=== PATIENT | female | born 1965 | race Caucasian/White ===

== ENCOUNTER 2018-09-16 23:23 | Inpatient (IN) ==
[2018-09-17 02:55] LABS: Albumin 2.7 G/DL (3.4-5.0); Bilirubin,Total 0.4 MG/DL (0.2-1.0); Calcium 8.5 MG/DL (8.5-10.1); Total Protein 6.8 G/DL (6.4-8.3)
[2018-09-17] MEDS ORDERED: INSULIN REGULAR 100 UNIT/ML IV ONE (03:03)
[2018-09-17] MEDS ORDERED: diphenhydrAMINE CAP 25 MG CAPSULE PO PRN (03:16)
[2018-09-17] MEDS ORDERED: NICOTINE 21 MG/24 HR PATCH TRANSDERM PRN (03:16)
[2018-09-17] MEDS ORDERED: ACETAMINOPHEN 325 MG TABLET PO PRN (03:16)
[2018-09-17] MEDS ORDERED: DEXTROSE 50% 25 GM/50 ML VIAL IV PRN (03:16)
[2018-09-17] MEDS ORDERED: GLUCAGON 1 MG VIAL IM PRN (03:16)
[2018-09-17] MEDS ORDERED: SODIUM POLYSTYRENE SULFATE 15 GM/60 ML BOTTLE PO PRN (03:16)
[2018-09-17] MEDS ORDERED: BISACODYL 5 MG TABLET PO PRN (03:16)
[2018-09-17] MEDS ORDERED: NITROGLYCERIN SL 0.4 MG TABLET SL PRN (03:19)
[2018-09-17] MEDS: cefTRIAXone 1,000 MG in SYRINGE 1 EACH IV SCH ×2 (04:26→17:15)
[2018-09-17] MEDS: ENOXAPARIN 100 MG/ML SYRINGE SUBCUT SCH (04:30)
[2018-09-17] MEDS: ONDANSETRON 4 MG/2 ML VIAL IV PRN ×2 (04:35→15:40)
[2018-09-17 05:18] LABS: Allen Test Positive
[2018-09-17 05:19] LABS: ABG Base Excess -6.4 MMOL/L (-2.5-2.5); ABG HCO3 19.1 MMOL/L (20-26); ABG Oxygen Saturation 97.8 % (95-100); ABG PCO2 31.8 MM HG (35-48); ABG PH 7.365 (7.35-7.45); ABG TCO2 16.9 MMOL/L (23-27)
[2018-09-17] MEDS ORDERED: CLOPIDOGREL 300 MG TABLET PO ONE (05:32)
[2018-09-17] MEDS ORDERED: ASPIRIN EC 325 MG TABLET PO ONE (05:34)
[2018-09-17 05:38] LABS: Risk Ratio 4.82; Thyroid Stimulating Hormone 3.75 uIU/ml (0.358-3.74); VLDL CHOLESTEROL 37.6 MG/DL
[2018-09-17] MEDS: SODIUM CHLORIDE 0.9% 1,000 ML IV SCH ×2 (05:49→23:40)
[2018-09-17] MEDS: PANTOPRAZOLE 40 MG TABLET PO SCH (09:30)
[2018-09-17] MEDS: INSULIN REGULAR 100 UNIT/ML SUBCUT SCH ×4 (09:30→23:49)
[2018-09-17 11:19] LABS: Amorphous Crystals,Urine Occasional /HPF (Few); Apearance,Urine Slightly Hazy (Clear); Bacteria,Urine Occasional /HPF (Few); Bilirubin,Urine Negative (Negative); Blood, Urine Negative (Negative); Glucose,Urine (UA) Negative (Negative); Hyaline Casts,Urine 9 /LPF (0-3); Ketones,Urine Negative (Negative); Mucus,Urine Occasional /LPF (Occasional); Nitrite,Urine Positive (Negative); Protein,Urine 100 MG/DL; RBC,Urine 9 /HPF (0-4); Squamous Epithelial Cell,Urine Few /HPF (0-10); Urine Color Amber (Yellow); Urine Specific Gravity 1.017 (1.001-1.035); Urine Urobilinogen < 2.0 EU/DL (0.2-1.0); WBC,Urine 9 /HPF (0-6)
[2018-09-17 11:35] LABS: Barbiturates Screen,Urine Negative (Negative); Benzodiazepines Screen,Urine Negative (Negative); Cannabinoid Screen,Urine Negative (Negative); Opiate Screen,Urine Negative (Negative); Phencyclidine Screen,Urine Negative (Negative)
[2018-09-17 13:22] LABS: Basophils % 0.2 % (0.0-0.8); Eosinophils # 0.1 10*3/uL (0.0-0.87); Eosinophils % 0.3 % (0.00-10.9); Hematocrit 26.9 VOL% (35.7-47.0); Hemoglobin 8.2 GM/DL (12.0-16.0); Immature Granulocytes % 0.8 %; Immature Granulocytes Absolute 0.13 #; Lymphocytes # 1.5 10*3/uL (1.4-4.0); Mean Corpuscular HGB Conc 30.5 GM/DL (32-36); Mean Corpuscular Volume 86.2 FL (87-102); Mean Platelet Volume 10.7 FL (9.6-12.0); Monocytes % 7.9 % (1.7-12.7); Neutrophils % 81.8 % (38.7-73.9); Platelet Count 187 T/CUMM (130-400); Red Blood Count 3.12 MC/CUMM (3.8-5.5); Red Cell Distribution Width 14.2 % (9.3-17.3); White Blood Count 16.3 T/CUMM (4-12)
[2018-09-17 14:33] LABS: % Iron Saturation 17.3 % (18-50)
[2018-09-17] MEDS ORDERED: DOBUTamine 500 MG/250 ML PREMIX IV SCH (16:30)
[2018-09-17] MEDS ORDERED: FUROSEMIDE 100 MG/10 ML VIAL IV ONE (17:00)
[2018-09-17 18:46] LABS: ABG Base Excess -7.3 MMOL/L (-2.5-2.5); ABG HCO3 18.4 MMOL/L (20-26); ABG Oxygen Saturation 90.5 % (95-100); ABG PCO2 30.5 MM HG (35-48); ABG PH 7.362 (7.35-7.45); ABG PO2 62.9 MM HG (80-95); ABG TCO2 16.2 MMOL/L (23-27); Allen Test Positive
[2018-09-17 20:41] LABS: ABG Base Excess -6.9 MMOL/L (-2.5-2.5); ABG HCO3 18.8 MMOL/L (20-26); ABG Oxygen Saturation 98.2 % (95-100); ABG PCO2 29.4 MM HG (35-48); ABG TCO2 16.2 MMOL/L (23-27); Allen Test Positive; Pt O2 Delivery Device BIPAP
[2018-09-17] MEDS: METOPROLOL TARTRATE 25 MG TABLET PO SCH (23:39)
[2018-09-17] MEDS: SODIUM BICARBONATE 650 MG TABLET PO SCH (23:40)
[2018-09-17] MEDS: EZETIMIBE 10 MG TABLET PO SCH (23:40)
[2018-09-18 01:17] LABS: Basophils % 0.3 % (0.0-0.8); Eosinophils % 0.2 % (0.00-10.9); Hematocrit 24.3 VOL% (35.7-47.0); Hemoglobin 7.4 GM/DL (12.0-16.0); Immature Granulocytes % 0.7 %; Lymphocytes # 1.7 10*3/uL (1.4-4.0); Lymphocytes % 12.6 % (21.3-54.2); Mean Corpuscular HGB Conc 30.5 GM/DL (32-36); Mean Corpuscular Volume 88.4 FL (87-102); Mean Platelet Volume 10.8 FL (9.6-12.0); Monocytes % 7.5 % (1.7-12.7); Neutrophils % 78.7 % (38.7-73.9); Platelet Count 164 T/CUMM (130-400); Red Blood Count 2.75 MC/CUMM (3.8-5.5); Red Cell Distribution Width 14.2 % (9.3-17.3); White Blood Count 13.8 T/CUMM (4-12)
[2018-09-18 01:30] LABS: ABG Base Excess -8.4 MMOL/L (-2.5-2.5); ABG HCO3 17.5 MMOL/L (20-26); ABG Oxygen Saturation 90.7 % (95-100); ABG PCO2 28.8 MM HG (35-48); ABG PH 7.358 (7.35-7.45); ABG PO2 63.7 MM HG (80-95); ABG TCO2 15.4 MMOL/L (23-27); Allen Test Positive
[2018-09-18] MEDS ORDERED: DOPamine 800 MG/250 ML PREMIX IV PRN ×2 (01:30→01:31)
[2018-09-18] MEDS ORDERED: CLOPIDOGREL 300 MG TABLET PO ONE (01:30)
[2018-09-18] MEDS ORDERED: DOPamine 800 MG/250 ML PREMIX IV ONE (01:31)
[2018-09-18] MEDS ORDERED: ETOMIDATE 20 MG/10 ML VIAL IV ONE ×2 (01:34→02:01)
[2018-09-18] MEDS ORDERED: VECURONIUM 10 MG VIAL IV ONE ×2 (01:34→02:01)
[2018-09-18 01:41] LABS: Albumin 2.4 G/DL (3.4-5.0); Bilirubin,Total 0.4 MG/DL (0.2-1.0); CKMB % 2.9 %; Calcium 8.4 MG/DL (8.5-10.1); Osmolality,Calculated 307.5 MOS/KG (273-304); Total Protein 6.6 G/DL (6.4-8.3)
[2018-09-18] MEDS ORDERED: VANCOMYCIN INJ 1,500 MG in SODIUM CHLORIDE 0.9% 250 ML IV ONE (01:42)
[2018-09-18 01:43] LABS: Troponin I 12.2 NG/ML (0.00-0.045)
[2018-09-18] MEDS: ENOXAPARIN 100 MG/ML SYRINGE SUBCUT SCH (01:54)
[2018-09-18] MEDS ORDERED: NOREPINEPHRINE 4 MG/4 ML VIAL IV ONE ×2 (01:57→05:15)
[2018-09-18] MEDS ORDERED: VANCOMYCIN INJ 1,500 MG in SODIUM CHLORIDE 0.9% 500 ML IV PRN (02:00)
[2018-09-18] MEDS ORDERED: MIDAZOLAM 2 MG/2 ML VIAL ONE (02:03)
[2018-09-18] MEDS ORDERED: MIDAZOLAM 2 MG/2 ML VIAL IV ONE (02:05)
[2018-09-18] MEDS: PROPOFOL 1,000 MG/100 ML BOTTLE IV SCH ×4 (02:45→21:37)
[2018-09-18 03:48] LABS: ABG Base Excess -7.7 MMOL/L (-2.5-2.5); ABG Oxygen Saturation 93.6 % (95-100); ABG PCO2 42.4 MM HG (35-48); ABG PH 7.258 (7.35-7.45); ABG PO2 82.7 MM HG (80-95); ABG TCO2 17.9 MMOL/L (23-27); Allen Test Positive; Pt O2 Delivery Device Ventilator
[2018-09-18] MEDS: SODIUM CHLORIDE 0.9% 1,000 ML IV SCH ×2 (04:00→17:37)
[2018-09-18] MEDS: cefTRIAXone 1,000 MG in SYRINGE 1 EACH IV SCH ×2 (05:35→17:37)
[2018-09-18 06:57] LABS: Albumin 2.3 G/DL (3.4-5.0); Bilirubin,Total 0.6 MG/DL (0.2-1.0); Calcium 8.1 MG/DL (8.5-10.1); Osmolality,Calculated 312.1 MOS/KG (273-304); Total Protein 6.7 G/DL (6.4-8.3)
[2018-09-18] MEDS: NOREPINEPHRINE 8 MG in SODIUM CHLORIDE 0.9% 242 ML IV PRN ×2 (07:00→13:00)
[2018-09-18 08:39] LABS: ABG HCO3 17.1 MMOL/L (20-26); ABG Oxygen Saturation 98.3 % (95-100); ABG PCO2 31.4 MM HG (35-48); ABG PH 7.321 (7.35-7.45); ABG TCO2 15.3 MMOL/L (23-27)
[2018-09-18] MEDS: METOPROLOL TARTRATE 25 MG TABLET PO SCH ×2 (08:47→21:35)
[2018-09-18] MEDS: PANTOPRAZOLE 40 MG TABLET PO SCH (09:16)
[2018-09-18] MEDS: SODIUM BICARBONATE 650 MG TABLET PO SCH ×2 (09:16→21:35)
[2018-09-18] MEDS: ISOSORBIDE MONONITRATE 30 MG TABLET PO SCH (09:16)
[2018-09-18] MEDS: ASPIRIN EC 325 MG TABLET PO SCH (09:16)
[2018-09-18] MEDS: INSULIN REGULAR 100 UNIT/ML SUBCUT SCH ×4 (09:16→22:35)
[2018-09-18] MEDS ORDERED: GLUCAGON 1 MG VIAL IM PRN (10:39)
[2018-09-18] MEDS ORDERED: DEXTROSE 50% 25 GM/50 ML VIAL IV PRN (10:39)
[2018-09-18] MEDS ORDERED: FUROSEMIDE 100 MG/10 ML VIAL IV ONE (18:33)
[2018-09-18] MEDS: EZETIMIBE 10 MG TABLET PO SCH (21:35)
[2018-09-19] MEDS: ENOXAPARIN 100 MG/ML SYRINGE SUBCUT SCH (02:17)
[2018-09-19] MEDS: cefTRIAXone 1,000 MG in SYRINGE 1 EACH IV SCH ×2 (03:46→18:00)
[2018-09-19] MEDS: PROPOFOL 1,000 MG/100 ML BOTTLE IV SCH ×5 (04:10→23:50)
[2018-09-19] MEDS: ONDANSETRON 4 MG/2 ML VIAL IV PRN (04:15)
[2018-09-19 04:20] LABS: ABG Base Excess -5.2 MMOL/L (-2.5-2.5); ABG HCO3 20.2 MMOL/L (20-26); ABG PCO2 25.6 MM HG (35-48); ABG TCO2 15.1 MMOL/L (23-27)
[2018-09-19 04:31] LABS: Basophils % 0.4 % (0.0-0.8); Eosinophils # 0.2 10*3/uL (0.0-0.87); Eosinophils % 1.6 % (0.00-10.9); Hematocrit 21.4 VOL% (35.7-47.0); Hemoglobin 6.9 GM/DL (12.0-16.0); Immature Granulocytes % 0.6 %; Immature Granulocytes Absolute 0.06 #; Lymphocytes # 1.9 10*3/uL (1.4-4.0); Lymphocytes % 17.9 % (21.3-54.2); Mean Corpuscular HGB Conc 32.2 GM/DL (32-36); Mean Corpuscular Volume 83.3 FL (87-102); Mean Platelet Volume 10.7 FL (9.6-12.0); Monocytes % 7.1 % (1.7-12.7); Neutrophils % 72.4 % (38.7-73.9); Platelet Count 191 T/CUMM (130-400); Red Blood Count 2.57 MC/CUMM (3.8-5.5); White Blood Count 10.7 T/CUMM (4-12)
[2018-09-19] MEDS: NOREPINEPHRINE 8 MG in SODIUM CHLORIDE 0.9% 242 ML IV PRN (04:40)
[2018-09-19 04:41] LABS: Calcium 7.9 MG/DL (8.5-10.1); Osmolality,Calculated 313.3 MOS/KG (273-304)
[2018-09-19] MEDS: METOPROLOL TARTRATE 25 MG TABLET PO SCH ×4 (08:01→21:13)
[2018-09-19] MEDS: INSULIN REGULAR 100 UNIT/ML SUBCUT SCH ×4 (09:16→21:12)
[2018-09-19] MEDS: ASPIRIN EC 325 MG TABLET PO SCH (09:17)
[2018-09-19] MEDS: ISOSORBIDE MONONITRATE 30 MG TABLET PO SCH (09:17)
[2018-09-19] MEDS: FUROSEMIDE 100 MG/10 ML VIAL IV SCH ×2 (09:17→15:48)
[2018-09-19] MEDS: PANTOPRAZOLE 40 MG TABLET PO SCH (09:19)
[2018-09-19] MEDS: SODIUM BICARBONATE 650 MG TABLET PO SCH ×2 (09:19→21:13)
[2018-09-19] MEDS: SODIUM CHLORIDE 0.9% 1,000 ML IV SCH ×2 (09:23→18:19)
[2018-09-19] MEDS ORDERED: SODIUM CHLORIDE 0.9% 1,000 ML IV PRN (09:42)
[2018-09-19] MEDS: ROSUVASTATIN 20 MG TABLET PO SCH (10:28)
[2018-09-19 19:52] LABS: Hematocrit 24.7 VOL% (35.7-47.0)
[2018-09-19] MEDS: EZETIMIBE 10 MG TABLET PO SCH (21:13)
[2018-09-20 04:51] LABS: ABG Base Excess -4.7 MMOL/L (-2.5-2.5); ABG HCO3 20.5 MMOL/L (20-26); ABG Oxygen Saturation 99.2 % (95-100); ABG PCO2 29.4 MM HG (35-48); ABG TCO2 17.7 MMOL/L (23-27)
[2018-09-20] MEDS: PROPOFOL 1,000 MG/100 ML BOTTLE IV SCH ×4 (04:58→20:30)
[2018-09-20] MEDS: cefTRIAXone 1,000 MG in SYRINGE 1 EACH IV SCH ×2 (04:59→17:02)
[2018-09-20 05:01] LABS: Basophils % 0.2 % (0.0-0.8); Eosinophils # 0.4 10*3/uL (0.0-0.87); Eosinophils % 2.9 % (0.00-10.9); Hematocrit 24.2 VOL% (35.7-47.0); Hemoglobin 7.9 GM/DL (12.0-16.0); Immature Granulocytes % 0.6 %; Immature Granulocytes Absolute 0.08 #; Lymphocytes # 1.3 10*3/uL (1.4-4.0); Lymphocytes % 10.3 % (21.3-54.2); Mean Corpuscular HGB Conc 32.6 GM/DL (32-36); Mean Corpuscular Volume 85.2 FL (87-102); Platelet Count 161 T/CUMM (130-400); Red Blood Count 2.84 MC/CUMM (3.8-5.5); Red Cell Distribution Width 14.4 % (9.3-17.3); White Blood Count 12.6 T/CUMM (4-12)
[2018-09-20 05:27] LABS: Calcium 7.7 MG/DL (8.5-10.1); Osmolality,Calculated 319.1 MOS/KG (273-304)
[2018-09-20] MEDS ORDERED: LIDOCAINE 1% 20 ML VIAL ONE (09:22)
[2018-09-20] MEDS: INSULIN REGULAR 100 UNIT/ML SUBCUT SCH ×4 (09:25→21:33)
[2018-09-20] MEDS ORDERED: ASPIRIN 325 MG TABLET ONE (09:42)
[2018-09-20] MEDS ORDERED: TIROFIBAN 5,000 MCG/100 ML PREMIX IV ONE (10:07)
[2018-09-20] MEDS ORDERED: ENOXAPARIN 30 MG/0.3 ML SYRINGE ONE (10:18)
[2018-09-20] MEDS ORDERED: ENOXAPARIN 60 MG/0.6 ML SYRINGE ONE (10:18)
[2018-09-20] MEDS ORDERED: TICAGRELOR 90 MG TABLET ONE (10:26)
[2018-09-20] MEDS: SODIUM BICARBONATE 650 MG TABLET PO SCH ×2 (11:35→21:32)
[2018-09-20] MEDS: ASPIRIN 325 MG TABLET PER TUBE SCH (11:35)
[2018-09-20] MEDS: ROSUVASTATIN 20 MG TABLET PO SCH (11:35)
[2018-09-20] MEDS: METOPROLOL TARTRATE 25 MG TABLET PO SCH ×3 (11:36→22:25)
[2018-09-20] MEDS: LANSOPRAZOLE ODT 30 MG TABLET PER TUBE SCH (11:36)
[2018-09-20] MEDS: FUROSEMIDE 100 MG/10 ML VIAL IV SCH (11:48)
[2018-09-20] MEDS: ASPIRIN EC 325 MG TABLET PO SCH (11:48)
[2018-09-20] MEDS: SODIUM CHLORIDE 0.45% 1,000 ML IV SCH (11:49)
[2018-09-20] MEDS: TICAGRELOR 90 MG TABLET PO SCH (21:32)
[2018-09-20] MEDS: EZETIMIBE 10 MG TABLET PO SCH (21:33)
[2018-09-21] MEDS: SODIUM CHLORIDE 0.45% 1,000 ML IV SCH (01:46)
[2018-09-21] MEDS: PROPOFOL 1,000 MG/100 ML BOTTLE IV SCH ×4 (03:25→20:00)
[2018-09-21] MEDS: cefTRIAXone 1,000 MG in SYRINGE 1 EACH IV SCH (04:39)
[2018-09-21 04:44] LABS: ABG Base Excess -5.1 MMOL/L (-2.5-2.5); ABG HCO3 20.2 MMOL/L (20-26); ABG Oxygen Saturation 99.4 % (95-100); ABG PCO2 29.3 MM HG (35-48); ABG PH 7.414 (7.35-7.45); ABG TCO2 17.5 MMOL/L (23-27)
[2018-09-21 04:52] LABS: Basophils % 0.1 % (0.0-0.8); Eosinophils # 0.3 10*3/uL (0.0-0.87); Eosinophils % 3.2 % (0.00-10.9); Hematocrit 22.7 VOL% (35.7-47.0); Hemoglobin 7.4 GM/DL (12.0-16.0); Immature Granulocytes % 0.6 %; Immature Granulocytes Absolute 0.06 #; Lymphocytes # 1.1 10*3/uL (1.4-4.0); Lymphocytes % 10.2 % (21.3-54.2); Mean Corpuscular HGB Conc 32.6 GM/DL (32-36); Mean Platelet Volume 11.2 FL (9.6-12.0); Monocytes % 6.8 % (1.7-12.7); Neutrophils % 79.1 % (38.7-73.9); Platelet Count 155 T/CUMM (130-400); Red Blood Count 2.67 MC/CUMM (3.8-5.5); Red Cell Distribution Width 14.7 % (9.3-17.3); White Blood Count 10.3 T/CUMM (4-12)
[2018-09-21 05:13] LABS: Calcium 7.4 MG/DL (8.5-10.1); Osmolality,Calculated 315.5 MOS/KG (273-304)
[2018-09-21] MEDS ORDERED: SODIUM CHLORIDE 0.9% 1,000 ML IV PRN (08:36)
[2018-09-21 08:53] LABS: % Iron Saturation 11.1 % (18-50)
[2018-09-21] MEDS: METOPROLOL TARTRATE 25 MG TABLET PO SCH (10:17)
[2018-09-21] MEDS: ASPIRIN 325 MG TABLET PER TUBE SCH (10:17)
[2018-09-21] MEDS: LANSOPRAZOLE ODT 30 MG TABLET PER TUBE SCH (10:26)
[2018-09-21] MEDS: ROSUVASTATIN 20 MG TABLET PO SCH (10:26)
[2018-09-21] MEDS: SODIUM BICARBONATE 650 MG TABLET PO SCH ×2 (10:26→21:16)
[2018-09-21] MEDS: TICAGRELOR 90 MG TABLET PO SCH ×2 (10:27→21:16)
[2018-09-21] MEDS: INSULIN REGULAR 100 UNIT/ML SUBCUT SCH ×4 (10:27→21:16)
[2018-09-21] MEDS: MORPHINE 4 MG/1 ML VIAL IV PRN (11:32)
[2018-09-21 11:51] LABS: ABG Base Excess -5.6 MMOL/L (-2.5-2.5); ABG HCO3 19.8 MMOL/L (20-26); ABG Oxygen Saturation 97.6 % (95-100); ABG PCO2 29.8 MM HG (35-48); ABG PH 7.398 (7.35-7.45); ABG TCO2 16.9 MMOL/L (23-27)
[2018-09-21] MEDS ORDERED: FUROSEMIDE 40 MG/4 ML VIAL IV ONE ×2 (12:00→16:39)
[2018-09-21] MEDS: DESITIN 4OZ/NYSTATIN 15 GRAM MIXTURE PASTE TOP SCH ×2 (13:52→21:16)
[2018-09-21] MEDS: INSULIN GLARGINE 100 UNIT/ML SUBCUT SCH (17:14)
[2018-09-22] MEDS: PROPOFOL 1,000 MG/100 ML BOTTLE IV SCH ×5 (01:20→19:25)
[2018-09-22 03:50] LABS: ABG Base Excess -5.1 MMOL/L (-2.5-2.5); ABG HCO3 20.2 MMOL/L (20-26); ABG Oxygen Saturation 97.7 % (95-100); ABG PCO2 34.1 MM HG (35-48); ABG PH 7.364 (7.35-7.45); ABG TCO2 17.1 MMOL/L (23-27)
[2018-09-22 04:02] LABS: Basophils % 0.2 % (0.0-0.8); Eosinophils # 0.3 10*3/uL (0.0-0.87); Hematocrit 30.2 VOL% (35.7-47.0); Immature Granulocytes % 0.5 %; Immature Granulocytes Absolute 0.05 #; Lymphocytes % 9.1 % (21.3-54.2); Mean Corpuscular HGB Conc 32.1 GM/DL (32-36); Mean Corpuscular Volume 86.5 FL (87-102); Mean Platelet Volume 11.3 FL (9.6-12.0); Monocytes % 6.5 % (1.7-12.7); Neutrophils % 80.7 % (38.7-73.9); Platelet Count 155 T/CUMM (130-400); Red Cell Distribution Width 14.8 % (9.3-17.3); White Blood Count 10.9 T/CUMM (4-12)
[2018-09-22 04:18] LABS: Calcium 7.6 MG/DL (8.5-10.1); Osmolality,Calculated 313.5 MOS/KG (273-304)
[2018-09-22 04:21] LABS: Hemoglobin 9.7 GM/DL (12.0-16.0); Red Blood Count 3.49 MC/CUMM (3.8-5.5)
[2018-09-22] MEDS ORDERED: FUROSEMIDE 100 MG/10 ML VIAL IV ONE (08:30)
[2018-09-22] MEDS ORDERED: FUROSEMIDE INJ 160 MG in SODIUM CHLORIDE 0.9% 50 ML IV ONE (08:30)
[2018-09-22] MEDS ORDERED: FUROSEMIDE 40 MG/4 ML VIAL IV SCH ×2 (08:34→16:00)
[2018-09-22] MEDS: ROSUVASTATIN 20 MG TABLET PO SCH ×2 (09:00→21:53)
[2018-09-22] MEDS: TICAGRELOR 90 MG TABLET PO SCH ×2 (09:00→21:53)
[2018-09-22] MEDS: ASPIRIN CHEW 81 MG TABLET PO SCH (09:00)
[2018-09-22] MEDS: LANSOPRAZOLE ODT 30 MG TABLET PER TUBE SCH (09:00)
[2018-09-22] MEDS: SODIUM BICARBONATE 650 MG TABLET PO SCH ×2 (09:00→21:53)
[2018-09-22] MEDS: INSULIN REGULAR 100 UNIT/ML SUBCUT SCH ×4 (09:00→22:18)
[2018-09-22] MEDS: INSULIN GLARGINE 100 UNIT/ML SUBCUT SCH (09:01)
[2018-09-22] MEDS: DESITIN 4OZ/NYSTATIN 15 GRAM MIXTURE PASTE TOP SCH ×2 (09:04→21:53)
[2018-09-22] MEDS: FUROSEMIDE 40 MG/4 ML VIAL IV SCH (16:27)
[2018-09-22] MEDS: BRIMONIDINE/TIMOLOL OPH SOLN 5 ML BOTTLE BOTH EYES SCH (21:53)
[2018-09-23] MEDS: PROPOFOL 1,000 MG/100 ML BOTTLE IV SCH ×3 (02:00→23:43)
[2018-09-23 04:41] LABS: ABG Base Excess -3.6 MMOL/L (-2.5-2.5); ABG HCO3 21.4 MMOL/L (20-26); ABG Oxygen Saturation 98.8 % (95-100); ABG PCO2 33.8 MM HG (35-48); ABG PH 7.393 (7.35-7.45); ABG TCO2 18.7 MMOL/L (23-27)
[2018-09-23 04:56] LABS: Hematocrit 30.3 VOL% (35.7-47.0); Hemoglobin 9.8 GM/DL (12.0-16.0); Red Blood Count 3.51 MC/CUMM (3.8-5.5); White Blood Count 9.8 T/CUMM (4-12)
[2018-09-23 04:57] LABS: Basophils % 0.3 % (0.0-0.8); Eosinophils # 0.4 10*3/uL (0.0-0.87); Eosinophils % 4.4 % (0.00-10.9); Immature Granulocytes % 0.4 %; Immature Granulocytes Absolute 0.04 #; Lymphocytes % 9.9 % (21.3-54.2); Mean Corpuscular HGB Conc 32.3 GM/DL (32-36); Mean Corpuscular Volume 86.3 FL (87-102); Mean Platelet Volume 10.9 FL (9.6-12.0); Monocytes % 7.8 % (1.7-12.7); Neutrophils % 77.2 % (38.7-73.9); Platelet Count 179 T/CUMM (130-400); Red Cell Distribution Width 14.7 % (9.3-17.3)
[2018-09-23 05:20] LABS: Osmolality,Calculated 318.3 MOS/KG (273-304); Prealbumin 11.3 MG/DL (20-40)
[2018-09-23] MEDS: SODIUM BICARBONATE 650 MG TABLET PO SCH ×2 (09:24→20:04)
[2018-09-23] MEDS: LANSOPRAZOLE ODT 30 MG TABLET PER TUBE SCH (09:24)
[2018-09-23] MEDS: TICAGRELOR 90 MG TABLET PO SCH ×2 (09:24→20:04)
[2018-09-23] MEDS: ASPIRIN CHEW 81 MG TABLET PO SCH (09:24)
[2018-09-23] MEDS: INSULIN REGULAR 100 UNIT/ML SUBCUT SCH ×4 (09:25→20:07)
[2018-09-23] MEDS: INSULIN GLARGINE 100 UNIT/ML SUBCUT SCH (09:25)
[2018-09-23] MEDS: FUROSEMIDE 40 MG/4 ML VIAL IV SCH ×2 (09:25→17:00)
[2018-09-23] MEDS: metOLazone 5 MG TABLET PER TUBE SCH (10:00)
[2018-09-23] MEDS: BRIMONIDINE/TIMOLOL OPH SOLN 5 ML BOTTLE BOTH EYES SCH ×2 (10:21→20:04)
[2018-09-23] MEDS: DESITIN 4OZ/NYSTATIN 15 GRAM MIXTURE PASTE TOP SCH ×2 (10:22→20:07)
[2018-09-23] MEDS: HEPARIN 5,000 UNIT/1 ML VIAL SUBCUT SCH (20:04)
[2018-09-23] MEDS: ROSUVASTATIN 20 MG TABLET PO SCH (20:04)
[2018-09-24] MEDS: PROPOFOL 1,000 MG/100 ML BOTTLE IV SCH ×3 (03:28→09:03)
[2018-09-24] MEDS: HEPARIN 5,000 UNIT/1 ML VIAL SUBCUT SCH ×2 (03:55→11:52)
[2018-09-24 03:56] LABS: Basophils # 0.1 10*3/uL (0.0-0.2); Basophils % 0.6 % (0.0-0.8); Eosinophils # 0.4 10*3/uL (0.0-0.87); Eosinophils % 4.2 % (0.00-10.9); Hematocrit 31.7 VOL% (35.7-47.0); Hemoglobin 9.9 GM/DL (12.0-16.0); Immature Granulocytes % 0.6 %; Immature Granulocytes Absolute 0.06 #; Lymphocytes # 1.5 10*3/uL (1.4-4.0); Lymphocytes % 14.3 % (21.3-54.2); Mean Corpuscular HGB Conc 31.2 GM/DL (32-36); Mean Corpuscular Volume 88.1 FL (87-102); Mean Platelet Volume 10.6 FL (9.6-12.0); Monocytes % 9.7 % (1.7-12.7); Neutrophils % 70.6 % (38.7-73.9); Platelet Count 208 T/CUMM (130-400); Red Cell Distribution Width 14.6 % (9.3-17.3); White Blood Count 10.5 T/CUMM (4-12)
[2018-09-24 04:02] VITALS: BP 144/73
[2018-09-24 04:17] LABS: Calcium 8.7 MG/DL (8.5-10.1)
[2018-09-24] MEDS: FUROSEMIDE 40 MG/4 ML VIAL IV SCH (08:24)
[2018-09-24] MEDS: INSULIN GLARGINE 100 UNIT/ML SUBCUT SCH (08:25)
[2018-09-24] MEDS: INSULIN REGULAR 100 UNIT/ML SUBCUT SCH ×2 (08:26→11:53)
[2018-09-24] MEDS: TICAGRELOR 90 MG TABLET PO SCH (08:26)
[2018-09-24] MEDS: SODIUM BICARBONATE 650 MG TABLET PO SCH (08:26)
[2018-09-24] MEDS: MORPHINE 4 MG/1 ML VIAL IV PRN (08:27)
[2018-09-24] MEDS: ASPIRIN CHEW 81 MG TABLET PO SCH (08:27)
[2018-09-24] MEDS: metOLazone 5 MG TABLET PER TUBE SCH (08:27)
[2018-09-24] MEDS: LANSOPRAZOLE ODT 30 MG TABLET PER TUBE SCH (08:27)
[2018-09-24] MEDS: DESITIN 4OZ/NYSTATIN 15 GRAM MIXTURE PASTE TOP SCH (08:29)
[2018-09-24] MEDS: BRIMONIDINE/TIMOLOL OPH SOLN 5 ML BOTTLE BOTH EYES SCH (09:04)
[2018-09-24] MEDS ORDERED: CARVEDILOL 3.125 MG TABLET PO SCH (21:00)
== END 2018-09-24 12:06 | DRG 246 ==
LOC: EDBD → EDUNIT# → N.ED 23:23 → N.EDINP 09-17 03:16 → SUATTDRO 09-17 03:16 → N.CC 09-17 03:50
PROVIDERS: ADMIT Internal Medicine; ATTEND Internal Medicine